=== PATIENT | female | born 1980 | race Caucasian/White ===

== ENCOUNTER 2019-10-21 13:17 | Emergency (ER) | payer BC ==
[~2019-10-21] VITALS: Ht 160 cm; Wt 68.8 kg
[~2019-10-21 13:17] MED LIST: IBUP-1223 PO; IRON1TAB60 PO; OXYC-302 PO; PREN1TAB60 PO
--- NOTE | 2019-10-21 14:43 | NUR ---
TO ROOM 36 FROM [employer] SINCE YESTERDAY RODRIGUEZ NAUSEA PHOTOPHOBIA, LEFT EYE WATERING AND PAINFUL
[2019-10-21] MEDS ORDERED: DIPHENHYDRAMINE 50 MG/ML, 1ML IVPush ONE (15:00)
[2019-10-21] MEDS ORDERED: SODIUM CHLORIDE FLUSH 10ML SYR IVF ONE (15:00)
[2019-10-21] MEDS ORDERED: DIPHENHYDRAMINE 50 MG/ML, 1ML ONE (15:13)
[2019-10-21] MEDS ORDERED: METOCLOPRAMIDE 5 MG/ML, 2ML ONE (15:13)
[2019-10-21] MEDS: METOCLOPRAMIDE 5 MG/ML, 2ML IVPush ONE ×2 (15:17→15:28)
[2019-10-21] MEDS ORDERED: KETOROLAC 30 MG/1 ML IVPush ONE (16:00)
[2019-10-21] MEDS ORDERED: KETOROLAC 30 MG/1 ML ONE (16:08)
[2019-10-21 16:30] VITALS: BP 102/67
--- NOTE | 2019-10-21 16:30 | NUR ---
RESTING WITH EYES CLOSED. DENIES RODRIGUEZ
== END 2019-10-21 18:21 | disposition home or self-care (01) ==
LOC: ED 17:36
DX: R51 Headache (principal); H53.8 Other visual disturbances
CPT/HCPCS: 70450; 96374; 96375; 99284; J1200; J1885; J2765